=== PATIENT | male | born 1940 | race African-American/Black ===

== ENCOUNTER → 2016-07-04 | Outpatient (CLI) | payer MEDICARE ==
--- NOTE | ~2016-07-04 | 2DMMODE ---
[facility] [place] [address] 2 D/M-MODE ECHOCARDIOGRAM Name: OJEDAKENNY INGRID Room #: REG [facility]#: [id number] Admission: 07/04/16 Attend Phys: Surinder Whitney MD Discharge: Date of : 42 Date of Service: 07/04/16 1248 Report #: [id number] THIS REPORT FOR: //name// APPROVED REPORT Study performed: 07/04/2016 11:50:36 EXAM: Comprehensive 2D, Doppler, and color-flow Echocardiogram Patient Location: Out-Patient Blood Pressure: 180/92 mmHg HR: 69 bpm Other Information Study Quality: Fair Indications Abnormal ECG Chest Pain 2D Dimensions RVDd: 39.02 mm LVEF(%): 51.09 (>50%) IVSd: 11.31 (7-11mm) LVOT Diam: 21.19 (18-24mm) LVDd: 42.29 mm PWd: 11.68 (7-11mm) Ascending Aorta: 31.77 mm LVDs: 31.38 (25-40mm) Aortic Root: 34.52 mm Johnson's LVEF: 51.09 % Volumes Left Atrial Volume (Systole) Single Plane 4CH: 55.75 mL Single Plane 2CH: 85.42 mL LA ESV Index: 36.00 mL/m2 Aortic Valve AoV Peak Fernando.: 1.19 m/s AO Peak Gr.: 5.62 mmHg LV Max P.23 mmHg LV Max: 1.25 m/s Mitral Valve E/A Ratio: 1.3 MV Decel. Time: 219.16 ms MV E Max Fernando.: 1.00 m/s MV A Fernando.: 0.76 m/s [facility] [address] [place] [address] 2 D/M-MODE ECHOCARDIOGRAM Name: KENNY OJEDA Room #: REG [facility]#: [id number] Admission: 07/04/16 Attend Phys: Surinder Whitney MD Discharge: Date of : 42 Date of Service: 07/04/16 1248 Report #: [id number] MV PHT: 63.56 ms Pulmonary Vein P Vein S: 66.8 m/s P Vein D: 50.8 m/s P Vein A Dur.: 31.3 m/s PVa Duration: 106 Left Ventricle The left ventricle is normal size. There is normal LV segmental wall motion. There is normal left ventricular wall thickness. The left ventricular systolic function is normal. The left ventricular ejection fraction is within the normal range. LVEF is 55-60%. The left ventricular diastolic function is normal. Right Ventricle The right ventricle is normal size. The right ventricular systolic function is normal. Atria Left atrium is mildly dilated. The right atrium size is normal. Aortic Valve The aortic valve is normal in structure. Aortic valve is calcified. Mild aortic regurgitation. There is no aortic valvular stenosis. Mitral Valve The mitral valve is normal in structure. Mild mitral regurgitation. No evidence of mitral valve stenosis. Tricuspid Valve The tricuspid valve is normal in structure. There is no tricuspid valve regurgitation noted. Pulmonic Valve The pulmonary valve is normal in structure. There is no pulmonic valvular regurgitation. Great Vessels The aortic root is normal in size. IVC is not well visualized. Pericardium There is no pericardial effusion. [facility] [address] [place] [address] 2 D/M-MODE ECHOCARDIOGRAM Name: KENNY OJEDA Room #: REG [facility]#: [id number] Admission: 07/04/16 Attend Phys: Surinder Whitney MD Discharge: Date of : 42 Date of Service: 07/04/161247 Report #: [id number] <Conclusion> The left ventricle is normal size. The left ventricular systolic function is normal. The right ventricle is normal size. Left atrium is mildly dilated. Mild aortic regurgitation. Mild mitral regurgitation. There is no pericardial effusion. <ELECTRONICALLY SIGNED> By: Surinder Whitney MD 07/04/16 1248 1248 47 Surinder Whitney MD /INF
== END ==
LOC: CV 07:40
DX: R07.9 Chest pain, unspecified (principal)

== ENCOUNTER → 2016-07-08 | Outpatient (CLI) | payer MEDICARE ==
[~2016-07-08] VITALS: Ht 182.9 cm; Wt 103.9 kg
[~2016-07-08] MED LIST: ASPIR 8181 MG PO; CHLORTHALIDONE25 MG PO; DIOVAN320 MG PO; IMDUR 30 MG TAB30 M1 PO; RANEXA500 MG PO
--- NOTE | ~2016-07-08 | CATHLAB ---
[facility] [employer] [place] [address] INVASIVE PROCEDURE REPORT Name: KENNY OJEDA Room #: REG [facility] [id number] Admission: 07/08/16 Attend Phys: Surinder Whitney MD Discharge: Date of : 42 Date of Service: 07/08/16 1203 Report #: [id number] THIS REPORT FOR: //name// CC: Surinder Recio DATE OF SERVICE: 07/08/2016 INDICATION: Unstable angina. Full risks, benefits, and alternatives of cardiac catheterization were explained to the patient. All questions were answered. A Barbeau test was performed on the right radial artery. The right wrist area was prepped and draped in a sterile manner. Lidocaine was given subcutaneously. A 5-Mongolian sheath was inserted into the right radial artery via modified Seldinger technique. Nitroglycerin and verapamil was injected through the sheath. 5000 units of heparin was induced through a peripheral IV. CORONARY ANATOMY: The left main is a short segment, with no flow-limiting lesions. The LAD is a abltgaps-cs-mlstz size caliber vessel, travelling down the anterior wall and wrapping around the apex. There were no flow-limiting lesions in the LAD. There is mild diffuse disease in the proximal and mid segments, 20%. The first diagonal artery is a moderate sized caliber vessel, with no flow-limiting lesions. The left circumflex artery has mild disease proximally. Within this region, there is a takeoff of a moderate size first obtuse marginal artery. There is a xyntwjiz-ou-xwsajh stenosis at the ostium of the first obtuse marginal artery, 50-70%. Medical therapy is recommended. Within the mid segment of the left circumflex artery, there is a 100% occlusion. The distal left circumflex artery and second obtuse marginal artery are filled via collateral circulation. The RCA is totally occluded in the mid segment. The distal RCA is filled via collateral circulation from the left coronary artery. A left ventriculogram was performed revealing mild segmental LV dysfunction, ejection fraction of 45%. There is focal hypokinesis of the mid to basal inferior segment. The LVEDP is 26 mmHg. There is no gradient across the outflow tract. At the end of the procedure, the sheath was removed and a Vasc band was applied [address] [address] INVASIVE PROCEDURE REPORT Name: KENNY OJEDA Room #: REG [facility] [id number] Admission: 07/08/16 Attend Phys: Surinder Whitney MD Discharge: Date of : 42 Date of Service: 07/08/16 1203 Report #: [id number] for hemostasis. IMPRESSION: 1. 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 Medical therapy is recommended. 2. Xfhczxkl-oq-qppdpo stenosis in the ostium of the first obtuse marginal artery, recommend medical therapy. Consider staged angioplasty through femoral artery access site. There is tortuosity involving the right brachiocephalic trunk. 3. Mild segmental left ventricular dysfunction. <ELECTRONICALLY SIGNED> By: Surinder Whitney MD 07/09/16 0722 1203 2249 Surinder Whitney MD /nt
--- NOTE | ~2016-07-08 | EKG ---
[place] [address] [address] [facility] [place] [address] ELECTROCARDIOGRAM REPORT Name: KENNY OJEDA [facility] [id number] Admission: 07/08/16 Attend Phys: Surinder Whitney MD Discharge: Date of : 42 Report #: [id number] THIS REPORT FOR: //name// [facility] Test Date: 2016-07-08 Test Time: 07:54:41 Pat Name: KENNY OJEDA Department: Room: Gender: Snailer: Gonzalo MORGAN : 1940 Requested By: Surinder Whitney Order Number: [id number] MD: Bossman Chand Measurements Intervals [place] Rate: 65 P: 56 WV: 207 QRS: 42 QRSD: 93 T: 67 QT: 400 QTc: 416 Interpretive Statements Sinus rhythm Ventricular premature complex 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
[2016-07-08 07:58] LABS: HEMATOCRIT 34.3 % (42.0-52.0); HEMOGLOBIN 10.4 gm/dL (14.0-18.0); MCH 20.8 pg (26.0-34.0); MCHC 30.3 g/dL (28.0-37.0); MCV 68.8 fL (80.0-100.0); RBC 4.99 mil/uL (4.50-6.00); RDW 19.5 % (10.5-14.5); WBC 7.9 thou/uL (4.0-11.0)
[2016-07-08 08:05] VITALS: BP 151/64
[2016-07-08 08:10] LABS: ANION GAP 10 mmol/L (7-16); BUN 21 mg/dL (7-18); CALCIUM 8.5 mg/dL (8.5-10.1); CHLORIDE 100 mmol/L (98-107); CO2 26 mmol/L (21-32); CREATININE 1.3 mg/dL (0.7-1.3); GLUCOSE 115 mg/dL (74-106); POTASSIUM 3.8 mmol/L (3.5-5.1); SODIUM 136 mmol/L (136-145)
[2016-07-08 08:15] LABS: CHOLESTEROL 181 mg/dL (<200); HDL CHOLESTEROL 40 mg/dL (>40); LDL CHOLESTEROL 107 mg/dL (<100); TC:HDL 4.5 Ratio (Not establshd); TRIGLYCERIDE 173 mg/dL (<150); VLDL 35 mg/dL (<40)
== END | disposition home or self-care (01) ==
LOC: CATH 07:25
PROVIDERS: Internal Medicine Cardiovascular Disease
DX: I25.10 Atherosclerotic heart disease of native coronary artery without angina pectoris (principal); I10 Essential (primary) hypertension; I25.2 Old myocardial infarction; Z87.891 Personal history of nicotine dependence

== ENCOUNTER → 2016-12-11 | Outpatient (CLI) | payer BC, OTHER | LOC: MRI 12-04 08:25 | DX: M47.896 Other spondylosis, lumbar region (principal); I70.213 Atherosclerosis of native arteries of extremities with intermittent claudication, bilateral legs ==

== ENCOUNTER → 2016-12-18 | Outpatient (CLI) | payer BC ==
[2016-12-18 08:15] LABS: CREATININE 1.6 mg/dL (0.7-1.3)
== END ==
LOC: CAT 07:21
PROVIDERS: Neuromusculoskeletal Medicine & OMM
DX: R10.9 Unspecified abdominal pain (principal); R59.0 Localized enlarged lymph nodes

== ENCOUNTER → 2017-09-22 | Outpatient (CLI) | payer BC ==
[~2017-09-22] VITALS: Ht 177.8 cm; Wt 108.4 kg
[~2017-09-22] MED LIST changes: +LIPITOR 20 MG T20 M1 PO; +PLAVIX 75 MG TA75 M1 PO; +TOPROL XL25 MG PO
--- NOTE | ~2017-09-22 | EKG ---
[facility] [place] [address] ELECTROCARDIOGRAM REPORT Name: OJEDAKENNY RAJAN [facility]: [facility] [id number] Admission: 09/22/17 Attend Phys: Surinder Whitney MD Discharge: Date of : 42 Report #: [id number] THIS REPORT FOR: //name// [facility] Test Date: 2017-09-22 Test Time: 06:58:52 Pat Name: KENNY OJEDA Department: Room: Gender: M Special Librarian: : 1940 Requested By: Surinder Whitney Order Number: [id number] MD: Bossman Chand Measurements Intervals [place] Rate: 61 P: 36 NE: 232 QRS: 48 QRSD: 102 T: 78 QT: 412 QTc: 415 Interpretive Statements Sinus rhythm Prolonged NE interval Minimal ST depression, diffuse leads Compared to ECG 07/08/2016 07:54:41 First degree AV block now present ST (T wave) deviation now present Ventricular premature complex(es) no longer present Electronically Signed On 09-22-2017 7:57:15 CDT by Bossman Chand [email or web address] <ELECTRONICALLY SIGNED> By: Bossman Chand MD, [facility] 09/22/17 0757 0658 0658 Bossman Chand MD, [facility] /EPI
[2017-09-22 07:27] LABS: HEMATOCRIT 28.3 % (42.0-52.0); HEMOGLOBIN 8.7 gm/dL (14.0-18.0); MCH 20.2 pg (26.0-34.0); MCHC 30.9 g/dL (28.0-37.0); MCV 65.6 fL (80.0-100.0); RBC 4.32 mil/uL (4.50-6.00); RDW 19.2 % (10.5-14.5); WBC 6.3 thou/uL (4.0-11.0)
[2017-09-22 07:29] VITALS: BP 141/56
[2017-09-22 07:42] LABS: CALCIUM 8.4 mg/dL (8.5-10.1)
== END | disposition home or self-care (01) ==
LOC: CATH 06:34
PROVIDERS: Internal Medicine Cardiovascular Disease
DX: R07.9 Chest pain, unspecified (principal); Z53.8 Procedure and treatment not carried out for other reasons; Z88.0 Allergy status to penicillin; I10 Essential (primary) hypertension; E78.5 Hyperlipidemia, unspecified; I25.2 Old myocardial infarction; F17.220 Nicotine dependence, chewing tobacco, uncomplicated; Z82.49 Family history of ischemic heart disease and other diseases of the circulatory system; Z98.41 Cataract extraction status, right eye; Z98.42 Cataract extraction status, left eye; Z95.5 Presence of coronary angioplasty implant and graft

== ENCOUNTER → 2018-12-17 | Outpatient (CLI) | payer BC ==
[~2018-12-17] MED LIST changes: +ANTIVERT25 MG PO; +CARVEDILOL12.5 MG PO; +HYDROCODON-ACE1 EAC7 PO; +IRON325 PO; +LEVO-T50 MCG PO; +NEURONTIN100 MG PO; +NORVASC 2.5 MG2.5 M1 PO; +PRINIVIL20 MG PO
--- NOTE | 2018-12-17 11:03 | 2DMMODE ---
[facility] [place] [address] 2 D/M-MODE ECHOCARDIOGRAM Name: OJEDAKENNY INGRID Room #: [facility] [id number] Admission: 12/17/18 Attend Phys: Surinder Whitney MD Discharge: Date of : 42 Report #: [id number] THIS REPORT FOR: //name// APPROVED REPORT Study performed: 12/17/2018 09:59:30 EXAM: Comprehensive 2D, Doppler, and color-flow Echocardiogram Patient Location: Echo lab Status: routine BSA: 2.27 HR: 55 bpm BP: 150/72 mmHg Rhythm: NSR Other Information Study Quality: Adequate Indications CAD Hypertension/HDD 2D Dimensions RVDd: 28.96 mm IVSd: 16.03 (7-11mm) LVOT Diam: 20.23 (18-24mm) LVDd: 42.36 mm PWd: 9.53 (7-11mm) Ascending Ao: 34.52 (22-36mm) LVDs: 24.57 (25-40mm) Aortic Root: 40.10 mm IVC: 15.00 mm Volumes Left Atrial Volume (Systole) Single Plane 4CH: 59.37 mL Single Plane 2CH: 74.95 mL LA ESV Index: 32.00 mL/m2 Aortic Valve AoV Peak Fernando.: 1.41 m/s AO Peak Gr.: 7.93 mmHg LVOT Max P.36 mmHg LVOT Max V: 1.16 m/s LAKEISHA Vmax: 2.64 cm2 AI Vmax: 3.54 m/s AI Codington: 1.51 m/s2 AI PHT: 677.46 ms [facility] [address] [address] 2 D/M-MODE ECHOCARDIOGRAM Name: KENNY OJEDA Room #: REG CL [facility]#: [id number] Admission: 12/17/18 Attend Phys: Surinder Whitney MD Discharge: Date of : 42 Report #: [id number] Mitral Valve E/A Ratio: 0.9 MV Decel. Time: 321.43 ms MV E Max Fernando.: 0.78 m/s MV A Fernando.: 0.86 m/s MV PHT: 93.22 ms IVRT: 76.12 ms Pulmonary Valve PV Peak Fernando.: 0.88 m/s PV Peak Gr.: 3.09 mmHg Pulmonary Vein P Vein S: 0.67 m/s P Vein A: 0.42 m/s P Vein D: 0.50 m/s P Vein A Dur.: 114.2 msec P Vein S/D Ratio: 1.34 Tricuspid Valve RAP Estimate: 5.00 mmHg Left Ventricle The left ventricle is normal size. There is normal left ventricular wall thickness. The left ventricular systolic function is normal. The left ventricular ejection fraction is within the normal range. LVEF is 60%. Mild diastolic dysfunction is present (impaired relaxation pattern). Right Ventricle The right ventricle is normal size. The right ventricular systolic function is normal. Atria The left atrium size is normal. The right atrium size is normal. Aortic Valve Mild aortic valve sclerosis. Mild aortic regurgitation. There is no aortic valvular stenosis. Mitral Valve The mitral valve is normal in structure. Trace mitral regurgitation. No evidence of mitral valve stenosis. Tricuspid Valve The tricuspid valve is normal in structure. There is no tricuspid valve regurgitation noted. [facility] [address] [place] [address] 2 D/M-MODE ECHOCARDIOGRAM Name: KENNY OJEDA Room #: REG [facility] Godinez#: [id number] Admission: 12/17/18 Attend Phys: Surinder Whitney MD Discharge: Date of : 42 Report #: [id number] Pulmonic Valve Pulmonic valve is not well visualized. Trace to mild pulmonic regurgitation. Great Vessels Aortic root is mildly dilated at 4.0 cm. IVC is normal in size and collapses >50% with inspiration. Pericardium There is no pericardial effusion. <Conclusion> The left ventricle is normal size. There is normal left ventricular wall thickness. The left ventricular systolic function is normal. Mild diastolic dysfunction is present (impaired relaxation pattern). The right ventricle is normal size. The left atrium size is normal. Mild aortic valve sclerosis. Mild aortic regurgitation. Trace mitral regurgitation. There is no tricuspid valve regurgitation noted. <ELECTRONICALLY SIGNED> By: Surinder Whitney MD 12/17/18 1103 1103 02 Surinder Whitney MD /INF
== END ==
LOC: CV 09:40
DX: I08.8 Other rheumatic multiple valve diseases (principal); I10 Essential (primary) hypertension; I25.10 Atherosclerotic heart disease of native coronary artery without angina pectoris

== ENCOUNTER → 2019-01-04 | Outpatient (CLI) | payer BC ==
[~2019-01-04] VITALS: Ht 177.8 cm; Wt 113.9 kg
--- NOTE | ~2019-01-04 | HPC ---
[facility] [place] [address] PAIN MANAGEMENT CONSULTATION Name: KENNY OJEDA Room #: REG [facility] Cornelius.#: [id number] Admission: 01/04/19 Attend Phys: Ozzy Sheehan MD Discharge: Date of : 42 Report #: [id number] THIS REPORT FOR: //name// CC: Surinder Recio MD DATE OF SERVICE: 01/04/2019 CHIEF COMPLAINT: Low back pain radiation into both legs. HISTORY OF PRESENT ILLNESS: I am seeing the patient today at the request of Dr. Whitney. He is a primary care. He is one of Dr. Recio's primary care patient. He is here to discuss his leg pain. He was previously sent to Dr. Roberts's clinic in 2017 when his symptoms began, but did not return due to lack of rapport. His pain today is reported as a continuous, burning, aching sensation that involves both legs, right worse than left. It begins in his right hip and works its way down into his thigh and calf. He describes weakness in the legs and some swelling despite the use of diuretics. He attributes much of his back pain to his work of many years. 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 The chronic heavy work attributing to some of the degenerative changes noted in his scans. Recently, it has been harder for him to get up and walk. This resulted in more sedentary lifestyle and a recliner. He is reluctant to undergo injections with triamcinolone or any sort of cortisone because of a reaction he had to a Dosepak causing flushing. Fully convinced that this is an allergic reaction, but at least that is his rationale. He does not want injections. MEDICATIONS: Carvedilol, amlodipine, levothyroxine, lisinopril, Plavix, and atorvastatin. He cannot take nonsteroidal anti-inflammatory drugs because of his use of Plavix and a history of gastric ulcers. PAST MEDICAL HISTORY: Remarkable for coronary artery disease with 2 stents, 1 in the circumflex and 1 in the LAD. He has a history of hypertension and his gastric ulcers were severe enough to require vagotomy and pyloroplasty performed many years ago by Dr. Perera in 1981. SOCIAL HISTORY: He is . His is with him today and supportive. Denies use of tobacco, denies use of alcohol. Denies use of any illegal drugs. [facility] [address] [place] [address] PAIN MANAGEMENT CONSULTATION Name: KENNY OJEDA Room #: REG CLI Herbert#: [id number] Admission: 01/04/19 Attend Phys: Ozzy Sheehan MD Discharge: Date of : 42 Report #: [id number] He has completed an opioid risk tool assessment and his score is 0 suggesting that he has very low likelihood of addiction. His pain impact score is 49/70 and he reports complete interference of his enjoyment of life and walking ability due to his pain. All others are scored between 6 and 9. REVIEW OF SYSTEMS: Positive for fatigue, weakness, blurred vision, shortness of breath, dyspnea on exertion with even small amounts of walking, peptic ulcer in the past. Pain, numbness and tingling into the legs. PHYSICAL EXAMINATION: GENERAL: His affect is mildly depressed. He answers questions in a short direct manner, but is pleasant. VITAL SIGNS: His blood pressure 165/75, heart rate 53, respirations 18, O2 sat 100. HEENT: Normal with pupils equal, round, reactive to light. EOMs are intact. Mucous membranes are moist. NECK: Supple. There is no adenopathy or no other palpable masses. CHEST: Clear. Decreased breath sounds in the bases. CARDIAC: Rhythm was regular. I could not appreciate a murmur. ABDOMEN: Soft and nontender. MUSCULOSKELETAL: Examination of the spine reveals mild rotational scoliosis. He has pain with forward flexion, extension and rotation. He has limitations in lateral tilt. Straight leg raising bilaterally is performed with minimal discomfort in the sitting position. Hamstring tightness in the supine position. He complains of some numbness bilaterally into the calves. No focal weakness is noted. Deep tendon reflexes are 1+ to trace, knees and ankles. MRI scan is 2 years old, but shows multilevel spondylosis, multilevel spinal stenosis, multilevel neural foraminal narrowing, worse at L5-S1 and L2-L3. IMPRESSION: Degenerative spine disease with lumbar spondylosis, degenerative disk disease and central spinal stenosis. RECOMMENDATIONS: He is a good candidate for a simple epidural steroid injection for symptomatic management and he should remain active both for cardiac reasons as well as for his back. Because the pain is severe enough, he is not willing to enter into even a simple walking program. I spent a good deal of time today reviewing and discussing the importance of this with him. I have agreed to initiate him on a very low dose of opioid pain medication since he cannot take much of anything else. I have started him on hydrocodone 5/325 one to two tablets a day, a total of 60 tablets. This is an MME of 60. I think the use of medicine in this setting is appropriate. Much time was spent in education the use of opioids under the CDC guideline. I have also recommended gabapentin 100 mg t.i.d. The combination of the anti-seizure drug in the [address] [address] PAIN MANAGEMENT CONSULTATION Name: KENNY OJEDA Room #: REG [facility].#: [id number] Admission: 01/04/19 Attend Phys: Ozzy Sheehan MD Discharge: Date of : 42 Report #: [id number] dose opioids should be initiated slowly and independently of each other before he begins to take them together. We spent a fairly significant amount of time discussing the risks and benefits of these medications independently and together. The goal of medication, of course, is to get him moving. I think this would be the most helpful for him of all. If he decides that he wants to undergo an epidural injection in the future, he would have to go off of his Plavix with the direction of either Dr. Recio or Dr. Whitney. Followup visit planned in 1 month. We will discuss further use of medication. By: [id number] Ozzy Sheehan MD /nt
[2019-01-04 13:18] VITALS: BP 165/75
--- NOTE | 2019-01-04 13:38 | NUR ---
Pain Clinic Assessment: 1. History of Osteoarthritis: HANDS History of Rheumatoid Arthritis: NONE 2. Height: 5 ft. 10 in. 177.8 cm. Weight: 251.0 lb. oz. 113.853 kg. Patient's BMI: 36.0 3. Vital Signs: BP: 165/75 Pulse: 53 Resp: 18 Temp: 02 Sat: 100 ECG Mon: 4. Pain Intensity: 5 5. Fall Risk: Dizziness: Y Needs help standing or walking: N Fallen in the last 3 months: N Fall risk comments: 6. Patient on Blood Thinner: Clopidogrel Bisulf(Plavix 7. History of Hypertension: Y 8. Opioid Therapy greater than 6 weeks: Opiate Contract Signed: 9. Risk Assessment Tool Provided: LOW 10. Functional Assessment Tool: 49/70 11. Recreational Drug Use: Never Drug Type: Tobacco Use: Never Smoker Tobacco Type: Amount or Packs/day: How Many Years: Alcohol Use: No Frequency: Quant:
== END ==
LOC: PAIN 06:54
DX: M47.816 Spondylosis without myelopathy or radiculopathy, lumbar region (principal); M51.36 Other intervertebral disc degeneration, lumbar region; Z79.899 Other long term (current) drug therapy

== ENCOUNTER → 2019-01-28 | Outpatient (CLI) | payer BC ==
[~2019-01-28] VITALS: Ht 177.8 cm; Wt 115.4 kg
[2019-01-28 10:36] VITALS: BP 145/59
--- NOTE | 2019-01-28 10:59 | NUR ---
Pain Clinic Assessment: 1. History of Osteoarthritis: HANDS History of Rheumatoid Arthritis: NONE 2. Height: 5 ft. 10 in. 177.8 cm. Weight: 254.4 lb. oz. 115.395 kg. Patient's BMI: 36.5 3. Vital Signs: BP: 145/59 Pulse: 61 Resp: 16 Temp: 02 Sat: 98 ECG Mon: 4. Pain Intensity: 4 5. Fall Risk: Dizziness: Y Needs help standing or walking: N Fallen in the last 3 months: N Fall risk comments: 6. Patient on Blood Thinner: Clopidogrel Bisulf(Plavix 7. History of Hypertension: Y 8. Opioid Therapy greater than 6 weeks: Y Opiate Contract Signed: 9. Risk Assessment Tool Provided: LOW-0 10. Functional Assessment Tool: 49/70 11. Recreational Drug Use: Never Drug Type: Tobacco Use: Never Smoker Tobacco Type: Amount or Packs/day: How Many Years: Alcohol Use: No Frequency: Quant:
== END ==
LOC: PAIN 06:59
DX: M47.26 Other spondylosis with radiculopathy, lumbar region (principal)

== ENCOUNTER → 2019-09-22 | Outpatient (CLI) | payer MEDICARE | LOC: NUC 06-24 10:16 | PROVIDERS: ATTEND Internal Medicine Cardiovascular Disease | DX: I25.10 Atherosclerotic heart disease of native coronary artery without angina pectoris (principal) ==

== ENCOUNTER → 2019-10-18 | Outpatient (CLI) | payer MEDICARE | LOC: SJCVC 09:00 | PROVIDERS: ATTEND Internal Medicine Cardiovascular Disease | DX: R06.00 Dyspnea, unspecified (principal); I12.9 Hypertensive chronic kidney disease with stage 1 through stage 4 chronic kidney disease, or unspecified chronic kidney disease; N18.3 Chronic kidney disease, stage 3 (moderate); E03.9 Hypothyroidism, unspecified; I25.10 Atherosclerotic heart disease of native coronary artery without angina pectoris; E78.00 Pure hypercholesterolemia, unspecified; Z79.899 Other long term (current) drug therapy ==

== ENCOUNTER → 2019-11-05 | Outpatient (CLI) | payer MEDICARE | LOC: SJCVC 08:13 | PROVIDERS: ATTEND Internal Medicine Cardiovascular Disease | DX: R60.0 Localized edema (principal); I25.10 Atherosclerotic heart disease of native coronary artery without angina pectoris; I12.9 Hypertensive chronic kidney disease with stage 1 through stage 4 chronic kidney disease, or unspecified chronic kidney disease; N18.3 Chronic kidney disease, stage 3 (moderate); Z79.899 Other long term (current) drug therapy; Z87.891 Personal history of nicotine dependence ==

== ENCOUNTER → 2020-03-24 | Outpatient (CLI) | payer MEDICARE | LOC: SJCVC 10:25 | PROVIDERS: ATTEND Internal Medicine Cardiovascular Disease | DX: I44.0 Atrioventricular block, first degree (principal); I25.10 Atherosclerotic heart disease of native coronary artery without angina pectoris; I12.9 Hypertensive chronic kidney disease with stage 1 through stage 4 chronic kidney disease, or unspecified chronic kidney disease; N18.9 Chronic kidney disease, unspecified; E78.00 Pure hypercholesterolemia, unspecified; R60.0 Localized edema ==

== ENCOUNTER → 2020-09-22 | Outpatient (CLI) | payer MEDICARE | LOC: SJCVCIMAG 07:38 | PROVIDERS: ATTEND Internal Medicine Cardiovascular Disease | DX: I08.0 Rheumatic disorders of both mitral and aortic valves (principal); R94.31 Abnormal electrocardiogram [ECG] [EKG]; R00.1 Bradycardia, unspecified; I44.0 Atrioventricular block, first degree; I77.819 Aortic ectasia, unspecified site; I25.10 Atherosclerotic heart disease of native coronary artery without angina pectoris; E78.00 Pure hypercholesterolemia, unspecified; I13.10 Hypertensive heart and chronic kidney disease without heart failure, with stage 1 through stage 4 chronic kidney disease, or unspecified chronic kidney disease; N18.30 Chronic kidney disease, stage 3 unspecified; R60.0 Localized edema; Z98.61 Coronary angioplasty status; Z98.890 Other specified postprocedural states; Z88.0 Allergy status to penicillin; Z88.1 Allergy status to other antibiotic agents; Z88.8 Allergy status to other drugs, medicaments and biological substances; Z79.82 Long term (current) use of aspirin; Z79.899 Other long term (current) drug therapy; Z87.891 Personal history of nicotine dependence ==

== ENCOUNTER → 2020-10-17 | Outpatient (CLI) | payer MEDICARE | LOC: SJCVC 11:40 | PROVIDERS: ATTEND Internal Medicine Cardiovascular Disease | DX: I12.9 Hypertensive chronic kidney disease with stage 1 through stage 4 chronic kidney disease, or unspecified chronic kidney disease (principal); N18.30 Chronic kidney disease, stage 3 unspecified; I25.10 Atherosclerotic heart disease of native coronary artery without angina pectoris; E78.00 Pure hypercholesterolemia, unspecified; Z68.33 Body mass index [BMI] 33.0-33.9, adult; Z79.82 Long term (current) use of aspirin; Z79.899 Other long term (current) drug therapy; Z87.891 Personal history of nicotine dependence ==

== ENCOUNTER → 2020-10-24 | Outpatient (CLI) | payer MEDICARE | LOC: SJCVC 10:00 | PROVIDERS: ATTEND Internal Medicine Cardiovascular Disease | DX: R94.31 Abnormal electrocardiogram [ECG] [EKG] (principal); I44.0 Atrioventricular block, first degree; R00.1 Bradycardia, unspecified; I25.10 Atherosclerotic heart disease of native coronary artery without angina pectoris; I12.9 Hypertensive chronic kidney disease with stage 1 through stage 4 chronic kidney disease, or unspecified chronic kidney disease; N18.30 Chronic kidney disease, stage 3 unspecified; E78.00 Pure hypercholesterolemia, unspecified; R60.0 Localized edema; E78.5 Hyperlipidemia, unspecified; Z98.890 Other specified postprocedural states; Z88.0 Allergy status to penicillin; Z88.8 Allergy status to other drugs, medicaments and biological substances; Z95.1 Presence of aortocoronary bypass graft; Z79.82 Long term (current) use of aspirin; Z79.899 Other long term (current) drug therapy; Z87.891 Personal history of nicotine dependence ==

== ENCOUNTER → 2021-03-29 | Outpatient (CLI) | payer MEDICARE | LOC: SJCVC 10:54 | PROVIDERS: ATTEND Internal Medicine Cardiovascular Disease | DX: R94.31 Abnormal electrocardiogram [ECG] [EKG] (principal); I44.0 Atrioventricular block, first degree; I25.10 Atherosclerotic heart disease of native coronary artery without angina pectoris; I10 Essential (primary) hypertension; E78.00 Pure hypercholesterolemia, unspecified; R60.0 Localized edema; K21.9 Gastro-esophageal reflux disease without esophagitis; E78.5 Hyperlipidemia, unspecified; Z88.0 Allergy status to penicillin; Z88.8 Allergy status to other drugs, medicaments and biological substances; Z79.82 Long term (current) use of aspirin; Z79.899 Other long term (current) drug therapy; Z87.891 Personal history of nicotine dependence; Z95.818 Presence of other cardiac implants and grafts; Z82.49 Family history of ischemic heart disease and other diseases of the circulatory system ==